=== PATIENT | male | born 1945 | race Caucasian/White ===

== ENCOUNTER → 2017-05-10 | Outpatient (CLI) | payer MEDICARE, OTHER ==
[~2017-05-10] MED LIST: ALBUTEROL INH INH; ALEN70TA3 PO; CETI10CA PO; DOCU-131 PO; FAMO-79 PO; FLUC200T4 PO; HYDR-3307 PO; LATA2.5D3 EACHEYE; METO25TA35 PO; MG PLUS PROTEIN PEG; MG PLUS PROTEIN PO; MYCO250C PO; NYST1000 PO; RIBAVIRIN PO; SOFO1TAB PO; SULF1TAB23 PO; TACR1CAP4 PO; TACR5CAP4 PO; TAMS-11 PO; TRAZ50TA18 PO; VALG450T PO
[2017-05-13 20:13] LABS: ENDOMYSIAL IGA Negative (Negative); IMMUNOGLOBULIN A 163 mg/dL (61-437)
== END | disposition home or self-care (01) ==
LOC: CFH 14:09
PROVIDERS: ATTEND Specialist
DX: K52.9 Noninfective gastroenteritis and colitis, unspecified (principal)
CPT/HCPCS: 36415; 82784; 83516; 83993; 86255; 87046; 87324; 87328; 87329; 87899

== ENCOUNTER 2017-05-12 06:43 | Day surgery (SDC) | payer MEDICARE, OTHER ==
[~2017-05-12] VITALS: Ht 175.3 cm; Wt 83.8 kg
[2017-05-12] MEDS ORDERED: LACTATED RINGERS 1,000 ML IV SCH (07:09)
[2017-05-12 07:37] VITALS: BP 121/74
[2017-05-12] MEDS ORDERED: PROPOFOL 10 MG/ML, 20ML ONE (08:25)
[2017-05-12] MEDS ORDERED: ACETAMINOPHEN 325 MG TABLET PO PRN (09:00)
[2017-05-12] MEDS ORDERED: hydrALAzine 20 MG/ML, 1ML IV PRN (09:00)
[2017-05-12] MEDS ORDERED: MIDAZOLAM 1 MG/ML, 2ML IV PRN (09:00)
[2017-05-12] MEDS ORDERED: PROMETHAZINE 25 MG/ML, 1ML IV PRN (09:00)
[2017-05-12] MEDS ORDERED: HYDROmorphone 1 MG/ML, 1ML IV PRN (09:00)
[2017-05-12] MEDS ORDERED: FENTANYL PF 100 MCG/2ML IV PRN (09:00)
[2017-05-12] MEDS ORDERED: ONDANSETRON 2MG/ML, 2ML IVPush PRN (09:00)
[2017-05-12] MEDS ORDERED: MEPERIDINE/PF 25MG/0.5ML IVPush PRN (09:00)
[2017-05-12] MEDS ORDERED: LABETALOL 5MG/ML, 20ML IV PRN (09:00)
[2017-05-12] MEDS ORDERED: ALBUTEROL SULFATE 2.5 MG/3 ML NPPB PRN (09:00)
[2017-05-12] MEDS ORDERED: OXYcodone 5 MG/5 ML ORAL.SOL UDC PO PRN (09:00)
== END 2017-05-12 11:10 ==
LOC: OUT 06:43
PROVIDERS: ATTEND Specialist
DX: K21.9 Gastro-esophageal reflux disease without esophagitis (principal); K52.9 Noninfective gastroenteritis and colitis, unspecified; K57.30 Diverticulosis of large intestine without perforation or abscess without bleeding; D64.9 Anemia, unspecified; Z86.19 Personal history of other infectious and parasitic diseases; Z89.512 Acquired absence of left leg below knee; Z98.890 Other specified postprocedural states; Z94.4 Liver transplant status; Z87.891 Personal history of nicotine dependence; J45.909 Unspecified asthma, uncomplicated; Z87.39 Personal history of other diseases of the musculoskeletal system and connective tissue
CPT/HCPCS: 43239; 45380; 88305; 93005; J2704; J7120

== ENCOUNTER 2017-12-14 17:09 | Emergency (ER) | payer MEDICARE, OTHER ==
[~2017-12-14] VITALS: Ht 177.8 cm; Wt 85.3 kg
[2017-12-14 17:10] VITALS: BP 161/85
[2017-12-14] MEDS ORDERED: LIDOCAINE-MPF 1%, 5ML INFIL ONE (17:30)
[2017-12-14] MEDS ORDERED: LIDOCAINE-MPF 1%, 5ML ONE (17:34)
[2017-12-14] MEDS ORDERED: BACITRACIN ZINC OINT 500U/GM, 0.9 GM ONE (18:35)
== END 2017-12-14 18:53 | disposition home or self-care (01) ==
LOC: ED 18:50
DX: S61.216A Laceration without foreign body of right little finger without damage to nail, initial encounter (principal); W26.0XXA Contact with knife, initial encounter; Y93.89 Activity, other specified; Y92.009 Unspecified place in unspecified non-institutional (private) residence as the place of occurrence of the external cause; Y99.8 Other external cause status
CPT/HCPCS: 12041; 99284

== ENCOUNTER 2018-08-08 11:48 | Inpatient (IN) | payer MEDICARE, OTHER ==
[~2018-08-08] VITALS: Ht 175.3 cm; Wt 87.5 kg
[~2018-08-08 11:48] MED LIST changes: -TRAZ50TA18 PO; +TRAZ50TA66 PO
[2018-08-08] MEDS ORDERED: OXYcodone/APAP 5/325MG TABLET PO ONE (12:30)
[2018-08-08] MEDS ORDERED: OXYcodone/APAP 5/325MG TABLET ONE (12:32)
[2018-08-08 12:48] LABS: BASOPHILS # (AUTO) 0.07 x10^3/uL (0-0.1); BASOPHILS % (AUTO) 1 % (0-1); EOSINOPHILS # (AUTO) 0.09 x10^3/uL (0-0.4); EOSINOPHILS % (AUTO) 1 % (1-7); LYMPHOCYTES # (AUTO) 1.33 x10^3/uL (1-3.4); LYMPHOCYTES % (AUTO) 15 % (22-44); MD NO; MEAN CORPUSCULAR HEMOGLOBIN 30.8 pg (27.5-34.5); MEAN CORPUSCULAR HGB CONC 33.4 g/dL (33.2-36.2); MEAN CORPUSCULAR VOLUME 92.4 fL (81-97); MEAN PLATELET VOLUME 8.8 fL (7.4-10.4); MONOCYTES # (AUTO) 1.04 x10^3/uL (0.2-0.8); MONOCYTES % (AUTO) 11 % (2-9); NEUTROPHILS # (AUTO) 6.54 x10^3/uL (1.8-6.8); NEUTROPHILS % (AUTO) 72 % (42-75); PLATELET COUNT 139 x10^3/uL (130-400); RED BLOOD COUNT 5.07 x10^6/uL (4.38-5.82); RED CELL DISTRIBUTION WIDTH 13.7 % (9.4-14.8)
[2018-08-08 12:54] LABS: ALANINE AMINOTRANSFERASE 20 U/L (12-78); ALBUMIN 3.7 g/dL (3.4-5.0); ANION GAP 6 mmol/L (5-15); CALCIUM 8.9 mg/dL (8.5-10.1); CHLORIDE 107 mmol/L (98-107); CREATININE 1.28 mg/dL (0.7-1.3)
[2018-08-08 12:55] LABS: INTERNATIONAL NORMALIZED RATIO 0.99 (0.93-1.1); PROTHROMBIN TIME 10.5 Seconds (9.6-11.5)
[2018-08-08 12:56] LABS: ALKALINE PHOSPHATASE 53 U/L (45-117); BILIRUBIN,TOTAL 0.6 mg/dL (0.2-1.0)
[2018-08-08] MEDS ORDERED: ENOXAPARIN 80 MG/0.8 ML ONE (14:57)
[2018-08-08] MEDS ORDERED: ENOXAPARIN 80 MG/0.8 ML SQ ONE (15:00)
--- NOTE | 2018-08-08 15:17 | NUR ---
ADMIT MD AT BEDSIDE
[2018-08-08] MEDS ORDERED: BISACODYL 10 MG SUPP PR PRN (15:30)
[2018-08-08] MEDS ORDERED: SENNA/DOCUSATE TABLET PO PRN (15:30)
[2018-08-08] MEDS ORDERED: ACETAMINOPHEN 325 MG TABLET PO PRN (15:30)
[2018-08-08] MEDS ORDERED: ZOLPIDEM 5MG TABLET PO PRN (15:30)
[2018-08-08] MEDS ORDERED: TACROLIMUS 1 MG CAPSULE PO SCH (16:00)
[2018-08-08] MEDS ORDERED: ALBUTEROL PRN (16:00)
[2018-08-08] MEDS ORDERED: ALENDRONATE SODIUM 35 MG PO SCH (16:00)
[2018-08-08] MEDS ORDERED: NYSTATIN 100000 UNIT PO SCH (16:00)
[2018-08-08] MEDS ORDERED: [UNRECOGNIZED DRUG - OTHER] PO SCH (18:00)
[2018-08-08 18:03] VITALS: BP 147/88
[2018-08-08] MEDS ORDERED: WARFARIN 5 MG TABLET PO-COUM ONE (18:30)
[2018-08-08] MEDS: HYDROcodone/APAP 5/325 TABLET PO PRN (19:36)
[2018-08-08 20:27] VITALS: BP 133/70
[2018-08-08] MEDS ORDERED: [UNRECOGNIZED DRUG - OTHER] PO SCH (21:00)
[2018-08-08] MEDS ORDERED: TACROLIMUS 5 MG PO SCH (21:00)
[2018-08-08] MEDS ORDERED: TRAZODONE 50MG TABLET PO SCH (21:00)
[2018-08-08] MEDS ORDERED: METOPROLOL TARTRATE 25 MG TABLET PO SCH (21:00)
[2018-08-08] MEDS: SODIUM CHLORIDE FLUSH 10ML SYR IVF SCH (21:06)
[2018-08-08] MEDS: FAMOTIDINE 20 MG TABLET PO SCH (21:17)
[2018-08-08] MEDS: LATANOPROST OPHTH 0.005%, 2.5ML EACHEYE SCH (22:05)
[2018-08-09 00:25] VITALS: BP 117/72
[2018-08-09] MEDS ORDERED: ENOXAPARIN 80 MG/0.8 ML SQ SCH (03:00)
[2018-08-09] MEDS: HYDROcodone/APAP 5/325 TABLET PO PRN ×3 (05:14→20:05)
[2018-08-09 05:32] LABS: BASOPHILS # (AUTO) 0.07 x10^3/uL (0-0.1); BASOPHILS % (AUTO) 1 % (0-1); EOSINOPHILS % (AUTO) 4 % (1-7); LYMPHOCYTES # (AUTO) 1.46 x10^3/uL (1-3.4); LYMPHOCYTES % (AUTO) 20 % (22-44); MD NO; MEAN CORPUSCULAR HEMOGLOBIN 31.1 pg (27.5-34.5); MEAN CORPUSCULAR HGB CONC 33.3 g/dL (33.2-36.2); MEAN CORPUSCULAR VOLUME 93.2 fL (81-97); MEAN PLATELET VOLUME 9.4 fL (7.4-10.4); MONOCYTES # (AUTO) 0.82 x10^3/uL (0.2-0.8); MONOCYTES % (AUTO) 11 % (2-9); NEUTROPHILS # (AUTO) 4.67 x10^3/uL (1.8-6.8); NEUTROPHILS % (AUTO) 64 % (42-75); PLATELET COUNT 136 x10^3/uL (130-400); RED BLOOD COUNT 4.95 x10^6/uL (4.38-5.82)
[2018-08-09 05:35] LABS: INTERNATIONAL NORMALIZED RATIO 0.96 (0.93-1.1); PROTHROMBIN TIME 10.2 Seconds (9.6-11.5)
[2018-08-09 05:46] LABS: CHLORIDE 106 mmol/L (98-107)
[2018-08-09 05:59] LABS: ALANINE AMINOTRANSFERASE 18 U/L (12-78); ALBUMIN 3.3 g/dL (3.4-5.0); ALKALINE PHOSPHATASE 51 U/L (45-117); ANION GAP 5 mmol/L (5-15); BILIRUBIN,TOTAL 0.5 mg/dL (0.2-1.0); CALCIUM 8.5 mg/dL (8.5-10.1); CREATININE 1.24 mg/dL (0.7-1.3); TOTAL PROTEIN 6.5 g/dL (6.4-8.2)
[2018-08-09 08:00] VITALS: BP 123/74
[2018-08-09] MEDS ORDERED: VALGANCICLOVIR 450MG TABLET PO SCH (08:00)
[2018-08-09] MEDS ORDERED: TAMSULOSIN 0.4 MG CAP.ER.24H PO SCH (09:00)
[2018-08-09] MEDS: SODIUM CHLORIDE FLUSH 10ML SYR IVF SCH ×2 (09:00→20:05)
[2018-08-09] MEDS: TACROLIMUS 1 MG CAPSULE PO SCH ×2 (10:09→20:05)
[2018-08-09] MEDS: METOPROLOL TARTRATE 25 MG TABLET PO SCH (10:10)
[2018-08-09] MEDS: FAMOTIDINE 20 MG TABLET PO SCH ×2 (10:11→20:05)
[2018-08-09] MEDS: CETIRIZINE 10 MG TABLET PO SCH (10:11)
[2018-08-09] MEDS ORDERED: OMNIPAQUE 350 MG/ML, 100ML BOTTLE ONE (11:55)
[2018-08-09 14:00] VITALS: BP 119/76
[2018-08-09] MEDS ORDERED: APIX5TAB PO ×3 (14:35→15:04)
[2018-08-09] MEDS ORDERED: TACR1CAP4 PO (14:55)
[2018-08-09] MEDS ORDERED: MAGN133T3 PO (14:56)
[2018-08-09] MEDS ORDERED: MELA3TAB2 PO (14:56)
[2018-08-09] MEDS ORDERED: LEVO50TA5 PO (14:57)
[2018-08-09] MEDS ORDERED: OLOP2.5D5 EACHEYE (14:59)
[2018-08-09] MEDS ORDERED: COLE625T12 PO (15:01)
[2018-08-09] MEDS: APIXABAN 5 MG TABLET PO SCH (15:23)
[2018-08-09] MEDS ORDERED: WARFARIN 5 MG TABLET PO-COUM ONE (18:00)
[2018-08-09 19:28] VITALS: BP 135/88
[2018-08-09] MEDS: LATANOPROST OPHTH 0.005%, 2.5ML EACHEYE SCH (20:05)
[2018-08-10 00:04] VITALS: BP 124/74
[2018-08-10] MEDS: HYDROcodone/APAP 5/325 TABLET PO PRN ×3 (00:22→14:16)
[2018-08-10] MEDS: APIXABAN 5 MG TABLET PO SCH ×2 (02:08→15:02)
[2018-08-10 05:25] LABS: BASOPHILS # (AUTO) 0.07 x10^3/uL (0-0.1); BASOPHILS % (AUTO) 1 % (0-1); EOSINOPHILS # (AUTO) 0.21 x10^3/uL (0-0.4); EOSINOPHILS % (AUTO) 3 % (1-7); LYMPHOCYTES # (AUTO) 1.41 x10^3/uL (1-3.4); LYMPHOCYTES % (AUTO) 18 % (22-44); MD NO; MEAN CORPUSCULAR HGB CONC 33.7 g/dL (33.2-36.2); MEAN PLATELET VOLUME 8.9 fL (7.4-10.4); MONOCYTES # (AUTO) 1.06 x10^3/uL (0.2-0.8); MONOCYTES % (AUTO) 14 % (2-9); NEUTROPHILS # (AUTO) 5.07 x10^3/uL (1.8-6.8); NEUTROPHILS % (AUTO) 65 % (42-75); PLATELET COUNT 158 x10^3/uL (130-400); RED BLOOD COUNT 5.05 x10^6/uL (4.38-5.82); RED CELL DISTRIBUTION WIDTH 14.2 % (9.4-14.8)
[2018-08-10 05:27] LABS: INTERNATIONAL NORMALIZED RATIO 1.11 (0.93-1.1); PROTHROMBIN TIME 11.7 Seconds (9.6-11.5)
[2018-08-10 05:28] LABS: ALBUMIN 3.3 g/dL (3.4-5.0); ANION GAP 6 mmol/L (5-15); CALCIUM 8.6 mg/dL (8.5-10.1); CHLORIDE 104 mmol/L (98-107); CREATININE 1.22 mg/dL (0.7-1.3)
[2018-08-10 06:54] VITALS: BP 114/75
[2018-08-10] MEDS: CETIRIZINE 10 MG TABLET PO SCH (08:46)
[2018-08-10] MEDS: TACROLIMUS 1 MG CAPSULE PO SCH (08:46)
[2018-08-10] MEDS: FAMOTIDINE 20 MG TABLET PO SCH (08:46)
[2018-08-10] MEDS: METOPROLOL TARTRATE 25 MG TABLET PO SCH (08:47)
[2018-08-10] MEDS: SODIUM CHLORIDE FLUSH 10ML SYR IVF SCH (08:47)
[2018-08-10 13:48] VITALS: BP 124/83
== END 2018-08-10 15:58 | disposition home or self-care (01) | DRG 299 ==
LOC: ED 12:34 → EDIP 15:30 → 3NE 17:45 → DCLOUNGE 08-10 15:40
PROVIDERS: ADMIT Internal Medicine; ATTEND Internal Medicine
DX: I82.412 Acute embolism and thrombosis of left femoral vein (principal); I26.99 Other pulmonary embolism without acute cor pulmonale; Z94.4 Liver transplant status; E03.9 Hypothyroidism, unspecified; F17.200 Nicotine dependence, unspecified, uncomplicated; I10 Essential (primary) hypertension; K21.9 Gastro-esophageal reflux disease without esophagitis; M19.90 Unspecified osteoarthritis, unspecified site; M85.80 Other specified disorders of bone density and structure, unspecified site; Z79.01 Long term (current) use of anticoagulants; Z85.05 Personal history of malignant neoplasm of liver; Z86.718 Personal history of other venous thrombosis and embolism; B19.20 Unspecified viral hepatitis C without hepatic coma
CPT/HCPCS: 36415; 71275; 80048; 80053; 82040; 83735; 84100; 85025; 85610; 85730; 96372; 99291; G0378; J1650; J7507; J7517; Q9967

== ENCOUNTER 2019-08-08 01:42 | Emergency (ER) | payer MEDICARE, OTHER ==
[~2019-08-08] VITALS: Ht 175.3 cm; Wt 93.9 kg
[~2019-08-08 01:42] MED LIST changes: +APIX5TAB PO; +COLE625T12 PO; -HYDR-3307 PO; +HYDR-36 PO; +LEVO50TA5 PO; +MAGN133T3 PO; +MELA3TAB56 PO; +OLOP2.5D5 EACHEYE
--- NOTE | 2019-08-08 01:53 | NUR ---
Break rn: PT presents to ed c/o L groin painx2 days. "it started as chaffing, and now i smell pus and there may be some draining." Pt denies sight of any purulent drainage. Denies any fevers at home. Area on upper L thigh red and inflammed. Monitoring applied. Call light within reach. Awaiting md assessment.
[2019-08-08 02:41] VITALS: BP 142/82
--- NOTE | 2019-08-08 02:46 | NUR ---
REVIEWED DISCHARGE INSTRUCTIONS AND PRESCRIPTION W/ PT, VERBALIZED UNDERSTANDING TO INFORMATION PROVIDED INCLUDING FOLLOW UP CARE, WOUND CARE AND RETURN PRECAUTIONS, DENIED QUESTIONS/CONCERNS. PT AMBULATED FROM ED.
== END 2019-08-08 02:49 | disposition home or self-care (01) ==
LOC: ED 02:27
DX: B37.9 Candidiasis, unspecified (principal); Z87.891 Personal history of nicotine dependence
CPT/HCPCS: 99283

== ENCOUNTER → 2019-08-29 | Outpatient (CLI) | payer MEDICARE, OTHER | END | disposition home or self-care (01) | LOC: CFH 12:11 | PROVIDERS: ATTEND Nurse Practitioner Family | DX: R22.1 Localized swelling, mass and lump, neck (principal); R05 Cough | CPT/HCPCS: 71046; 76536 ==